=== PATIENT | female | born 1960 | race Caucasian/White ===

== ENCOUNTER 2017-03-24 23:20 | Emergency (ER) | payer MEDICAID ==
--- NOTE | 2017-03-24 23:57 | EDM.PDOC ---
ED HPI GENERAL MEDICAL PROBLEM - General Chief Complaint: General Stated Complaint: SORE THROAT Time Seen by Provider: 03/24/17 23:35 Source of Information: Reports: Patient History Limitations: Reports: No Limitations - History of Present Illness INITIAL COMMENTS - FREE TEXT/NARRATIVE: 56 YO WF presents to ER complaining of nonproductive cough, congestion and body aches x 2 days. Pt reports associated subjective fever/chills and 1 episode 2 days ago of shortness of breath. Pt is a 40 pack year smoker and states she has been diagnosed with reactive airway disease in the remote past. Pt denies any chest pain or shortness of breath at this time. Onset Date: 03/23/17 Duration: Day(s): (2) Location: Reports: Generalized Quality: Reports: Ache Severity: Mild Improves with: Reports: None Worsens with: Reports: None Associated Symptoms: Reports: Cough, Fever/Chills, Malaise. 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: Acetaminophen, NSAIDS Generalized Pain Score (Numeric/FACES): 5 - Related Data Allergies Allergy/AdvReac Type Severity Reaction Status Date / Time Penicillins Allergy Anaphylactic Verified 03/24/17 23:25 Shock Home Meds: Home Meds Dextromethorphan HBr/Chlor-Mal [Cough & Cold] 1 tab PO Q6HR PRN 03/24/17 [ History] diphenhydrAMINE HCl [Benadryl] 25 mg PO BID PRN 03/24/17 [History] Cetirizine [ZyrTEC] 10 mg PO DAILY #30 tablet 03/25/17 [Rx] Ibuprofen [Motrin] 600 mg PO Q6H #30 tablet 03/25/17 [Rx] ED ROS GENERAL - Review of Systems Review Of Systems: See Below Constitutional: Reports: Fever, Chills, Malaise HEENT: Reports: Rhinitis Respiratory: Reports: No Symptoms Cardiovascular: Reports: No Symptoms Endocrine: Reports: No Symptoms GI/Abdominal: Reports: No Symptoms : Reports: No Symptoms Musculoskeletal: Reports: No Symptoms Skin: Reports: No Symptoms Neurological: Reports: No Symptoms Psychiatric: Reports: No Symptoms Hematologic/Lymphatic: Reports: No Symptoms Immunologic: Reports: No Symptoms ED EXAM, GENERAL - Physical Exam Exam: See Below Exam Limited By: No Limitations General Appearance: Alert, WD/WN, No Apparent Distress Ears: Normal External Exam, Normal Canal, Hearing Grossly Normal, Normal TMs Ear Exam: Bilateral Ear: Auricle Normal, Canal Normal, TM normal Nose: Clear Rhinorrhea Throat/Mouth: Normal Inspection, Normal Lips, Normal Teeth, Normal Gums, Normal Oropharynx, Normal Voice, No Airway Compromise Head: Atraumatic, Normocephalic Neck: Normal Inspection, Supple, Non-Tender, Full Range of Motion Respiratory/Chest: No Respiratory Distress, Lungs Clear, Normal Breath Sounds, No Accessory Muscle Use, Chest Non-Tender Cardiovascular: Normal Peripheral Pulses, Regular Rate, Rhythm, No Edema, No Gallop, No JVD, No Murmur, No Rub GI/Abdominal: Normal Bowel Sounds, Soft, Non-Tender, No Organomegaly, No Distention, No Abnormal Bruit, No Mass Back Exam: Normal Inspection, Full Range of Motion, NT Extremities: Normal Inspection, Normal Range of Motion, Non-Tender, Normal Capillary Refill, No Pedal Edema Neurological: Alert, Oriented, CN II-XII Intact, Normal Cognition, Normal Gait, Normal Reflexes, No Motor/Sensory Deficits Psychiatric: Normal Affect, Normal Mood Skin Exam: Warm, Dry, Intact, Normal Color, No Rash Lymphatic: No Adenopathy Course - Vital Signs Last Recorded V/S: Last Vital Signs Temp 37.6 C 03/24/17 23:37 Pulse 79 03/24/17 23:37 Resp 20 03/24/17 23:37 BP 140/73 03/24/17 23:37 Pulse Ox 94 L 03/24/17 23:37 Departure - Departure Time of Disposition: 00:05 Disposition: Home, Self-Care 01 Condition: Good Clinical Impression: Viral upper respiratory infection - Discharge Information Prescriptions: Cetirizine [ZyrTEC] 10 mg PO DAILY #30 tablet Ibuprofen [Motrin] 600 mg PO Q6H #30 tablet Instructions: Viral Respiratory Infection, [id number] - Assessment/Plan Assessment:: 1. viral URI Plan: 1. discharge home 2. zyrtec 10mg PO QD 3. benadryl 50mg PO QHS PRN 4. Albuterol HFA Q4 PRN 5. motrin/tylenol 6. follow up at [facility] next 2 days for recheck
[2017-03-25] MEDS ORDERED: Albuterol HFA 18 Gm Inhaler INH PRN (00:11)
== END 2017-03-25 00:30 | disposition home or self-care (01) ==
LOC: KA.ED 23:20
DX: J06.9 Acute upper respiratory infection, unspecified (principal); Z88.0 Allergy status to penicillin
CPT/HCPCS: 99282; A9270

== ENCOUNTER 2020-12-13 23:52 | Emergency (ER) | payer MEDICARE, MEDICAID ==
--- NOTE | 2020-12-14 00:20 | EDM.PDOC ---
ED HPI GENERAL MEDICAL PROBLEM - General Chief Complaint: Abdominal Pain Stated Complaint: Abdominal Pain Time Seen by Provider: 12/14/20 00:19 Source of Information: Reports: Patient History Limitations: Reports: No Limitations - History of Present Illness INITIAL COMMENTS - FREE TEXT/NARRATIVE: Maureen, 60-year-old female, presents via private vehicle with what she states is abdominal/pelvic pain to the right side of midline. This pain developed 3 weeks ago and has been consistent daily. Yesterday, she turned and felt that it was slightly different but patiently waited until midnight to present to the emergency department for evaluation. She states that she has had looser stools questioning if she has irritable bowel but today suddenly developed what she feels is constipation she is not had another bowel movement in the past 6 hours. She denies any dysuria. Denies any vaginal discharge. Tonight when the pain continued she started self assessment and feels that she has a swelling presentation to her abdomen/groin. She denies fever chills or other factors. Has not had any surgeries with all female anatomy remaining intact and no previous issues as this. Did have a splenic procedure to which she states a small star device was placed. Has used Aleve which was beneficial but to a minimal extent.. Duration: Week(s): (three) Location: Reports: Abdomen, Pelvis Right Lower Abdomen Pain Score (Numeric/FACES): 5 - Related Data Allergies Allergy/AdvReac Type Severity Reaction Status Date / Time latex Allergy Itching Verified 12/14/20 02:00 Penicillins Allergy Anaphylactic Verified 12/14/20 00:09 Shock shellfish derived Allergy Anaphylactic Verified 12/14/20 00:09 Shock Home Meds: Home Meds diphenhydrAMINE HCL [Benadryl] 25 mg PO BID PRN 03/24/17 [History] Acetaminophen [Tylenol Arthritis] 650 mg PO Q6H PRN 12/14/20 [History] Cannabidiol (Cbd) Extract [CBD Oil] 1 ea PO DAILY PRN 12/14/20 [History] Dm/Acetaminophen/Doxylamine [Vicks Nyquil Cold-Flu Liquid] 30 ml PO Q6H PRN 0 12/14/20 [History] Ibuprofen [Motrin] 400 mg PO Q6H PRN 12/14/20 [History] Naproxen Sodium [Aleve] 220 mg PO DAILY 12/14/20 [History] Umeclidinium Brm/Vilanterol Tr [Anoro Ellipta 62.5-25 MCG] 1 puff IH DAILY 12/14/20 [History] Past Medical History HEENT History: Reports: Impaired Vision Cardiovascular History: Reports: High Cholesterol, Hypertension Respiratory History: Reports: Pneumonia, Recurrent Gastrointestinal History: Reports: Irritable Bowel Syndrome Genitourinary History: Reports: Pyelonephritis Musculoskeletal History: Reports: Fibromyalgia Psychiatric History: Reports: Anxiety, Depression, Panic Attack - Infectious Disease History Infectious Disease History: Reports: Mumps - Past Surgical History GI Surgical History: Reports: Other (See Below) Other GI Surgeries/Procedures: spleenectomy Social & Family History - Family History Family Medical History: No Pertinent Family History - Caffeine Use Caffeine Use: Reports: Tea ED ROS GENERAL - Review of Systems Review Of Systems: Comprehensive ROS is negative, except as noted in HPI. ED EXAM, GENERAL - Physical Exam Exam: See Below Free Text/Narrative:: Alert, oriented, in no significant distress. HEENT is negative discharge or deformity. PERRLA no icterus no injection. Jenks moist mucous membranes. Neck soft supple with no lymphadenopathy no rigidity noted. Thorax is raspy with full breath sounds no wheezes nor crackles. Cardiac is regular with no appreciated murmur. Abdomen has bowel sounds present with no specific tenderness nor megaly appreciated. There is mild tenderness in the extreme lower right quadrant with no rebound tenderness which she states is a fullness feeling when palpated into her pelvis region. She moves her legs about with no discomfort. States that certain motion, twisting, induces pain. Course - Vital Signs Last Recorded V/S: Last Vital Signs Temp 98.8 F 12/14/20 00:04 Pulse 63 12/14/20 01:15 Resp 18 12/14/20 00:04 BP 115/68 12/14/20 01:15 Pulse Ox 94 L 12/14/20 01:15 - Orders/Labs/Meds Orders: Active Orders 24 hr Category Date Time Status Abdomen Pelvis w Cont [CT] Stat Exams 12/14/20 01:36 Ordered Sodium Chloride 0.9% [Normal Saline] 50 ml Med 12/14/20 02:00 Active IV ASDIRECTED Medication Orders Sodium Chloride (Normal Saline) 50 mls @ 200 mls/hr IV ASDIRECTED MARILU Last Admin: 12/14/20 02:06 Dose: 200 mls/hr Documented by: MONICA Labs: Laboratory Tests 12/14/20 12/14/20 12/14/20 Range/Units 00:30 00:30 00:50 WBC 5.45 (5.00-10.00) 10^3/uL RBC 4.45 (3.80-5.50) 10^6/uL Hgb 13.4 (12.0-16.0) g/dL Hct 40.1 (37.0-47.0) % MCV 90.1 (82.0-92.0) fL MCH 30.1 (27.0-31.0) pg MCHC 33.4 (32.0-36.0) g/dL RDW 11.9 (11.5-14.5) % Plt Count 271 (150-400) 10^3/uL MPV 10.8 H (7.4-10.4) fL Immature Gran % (Auto) 0.0 (0.0-5.0) % Neut % (Auto) 30.8 L (50.0-70.0) % Lymph % (Auto) 59.6 H (20.0-40.0) % Sharp % (Auto) 7.7 (2.0-8.0) % Eos % (Auto) 1.5 (1.0-3.0) % Baso % (Auto) 0.4 (0.0-1.0) % Neut # (Auto) 1.68 L (2.50-7.00) 10^3/uL Lymph # (Auto) 3.25 (1.00-4.00) 10^3/uL Sharp # (Auto) 0.42 (0.10-0.80) 10^3/uL Eos # (Auto) 0.08 L (0.10-0.30) 10^3/uL Baso # (Auto) 0.02 (0.00-0.10) 10^3/uL Immature Gran # (Auto) 0.00 (0.00-0.50) 10^3/uL Sodium 143 (136-145) mmol/L Potassium 3.8 (3.5-5.1) mmol/L Chloride 106 (98-107) mmol/L Carbon Dioxide 27.4 (21.0-32.0) mmol/L Anion Gap 13.4 (5-15) mmol/L BUN 17 (7-18) mg/dL Creatinine 0.63 (0.51-1.17) mg/dL Est Cr Clr Drug Dosing 92.34 mL/min Estimated GFR (MDRD) > 60 mL/min Glucose 92 (70-140) mg/dL Calcium 8.4 L (8.7-10.3) mg/dL Total Bilirubin 0.1 L (0.2-1.0) mg/dL AST 13 L (15-37) U/L ALT 21 (14-63) U/L Alkaline Phosphatase 72 (46-116) U/L Total Protein 6.7 (6.4-8.2) g/dL Albumin 3.79 (3.40-5.00) g/dL Specimen Type Urincc Urine Color Yellow (YELLOW) Urine Appearance Clear (CLEAR) Urine pH 7.0 (5.0-9.0) Ur Specific Flynn 1.015 (1.005-1.030) Urine Protein Negative (NEGATIVE) mg/dL Urine Glucose (UA) Negative (NEGATIVE) mg/dL Urine Ketones Negative (NEGATIVE) mg/dL Urine Occult Blood Negative (NEGATIVE) Urine Nitrite Negative (NEGATIVE) Urine Bilirubin Negative (NEGATIVE) Urine Urobilinogen 0.2 (0.2-1.0) E.U./dL Ur Leukocyte Esterase Negative (NEGATIVE) Meds: Medications Generic Name Dose Route Start Last Admin Trade Name Freq PRN Reason Stop Dose Admin Sodium Chloride 50 mls @ 200 mls/hr 12/14/20 02:00 12/14/20 02:06 Normal Saline IV 200 mls/hr ASDIRECTED MARILU Administration Discontinued Medications Generic Name Dose Route Start Last Admin Trade Name Freq PRN Reason Stop Dose Admin Diphenhydramine HCl 25 mg 12/14/20 01:39 12/14/20 01:48 Diphenhydramine 50 Mg/Ml Sdv IVPUSH 12/14/20 01:40 25 mg ONETIME ONE Administration Iopamidol 75 ml 12/14/20 01:46 12/14/20 02:06 Iopamidol 755 Mg/Ml 75 Ml Bottle IVPUSH 12/14/20 01:47 75 ml ONETIME ONE Administration - Re-Assessments/Exams Free Text/Narrative Re-Assessment/Exam: 12/14/20 03:29 resting comfortable awaiting delayed CT report. Departure - Departure Time of Disposition: 03:46 Disposition: Home, Self-Care 01 Condition: Good Clinical Impression: Abdominal fullness, Abdominal pain - Discharge Information *PRESCRIPTION DRUG MONITORING PROGRAM REVIEWED*: Not Applicable *COPY OF PRESCRIPTION DRUG MONITORING REPORT IN PATIENT SHELBY: Not Applicable Referrals: Kajal Patel, [employer] [Primary Care Provider] - Forms: ED Department Discharge Additional Instructions: There were no significant findings on your CT of the abdomen and pelvis other than that questionable foreign body by the pancreas which may be related to your procedure performed on the spleen. This needs to be followed up with your provider in the clinic. There is no evidence of any herniation. It is likely it is a muscle strain. Significant amount of stool was noted on the scan, you need to increase your fiber and fluid. You need to go to the clinic and be reassessed with recommendations for physical therapy. Continue all medications you are on as directed. Stool softener and increasing your fluid intake may be beneficial for the amount of stool retained. Follow-up with your clinic as you are scheduled. Sepsis Event Note (ED) - Evaluation Sepsis Screening Result: No Definite Risk - Focused Exam Vital Signs: Vital Signs Temp Pulse Resp BP Pulse Ox 12/14/20 01:15 63 115/68 94 L 12/14/20 01:00 62 120/66 94 L 12/14/20 00:45 62 124/58 L 94 L 12/14/20 00:30 60 142/60 H 94 L 12/14/20 00:15 64 144/66 H 94 L 12/14/20 00:04 98.8 F 68 18 121/67 94 L 12/13/20 23:52 98.8 F 68 18 121/67 94 L - Problem List & Annotations (1) Abdominal pain SNOMED Code(s): 08600265 Code(s): R10.9 - UNSPECIFIED ABDOMINAL PAIN Status: Acute (2) Abdominal fullness SNOMED Code(s): 142010247 Code(s): R19.8 - OTH SYMPTOMS AND SIGNS INVOLVING THE DGSTV SYS AND ABDOMEN Status: Acute - Problem List Review Problem List Initiated/Reviewed/Updated: Yes - My Orders Last 24 Hours: My Active Orders 12/14/20 01:36 Abdomen Pelvis w Cont [CT] Stat 12/14/20 02:00 Sodium Chloride 0.9% [Normal Saline] 50 ml IV ASDIRECTED - Assessment/Plan Last 24 Hours: My Active Orders 12/14/20 01:36 Abdomen Pelvis w Cont [CT] Stat 12/14/20 02:00 Sodium Chloride 0.9% [Normal Saline] 50 ml IV ASDIRECTED Plan: There were no significant findings on your CT of the abdomen and pelvis other than that questionable foreign body by the pancreas which may be related to your procedure performed on the spleen. This needs to be followed up with your provider in the clinic. There is no evidence of any herniation. It is likely it is a muscle strain. Significant amount of stool was noted on the scan, you need to increase your fiber and fluid. You need to go to the clinic and be reassessed with recommendations for physical therapy. Continue all medications you are on as directed. Stool softener and increasing your fluid intake may be beneficial for the amount of stool retained. Follow-up with your clinic as you are scheduled.
[2020-12-14 01:26] VITALS: BP 115/68; PULSE 63
[2020-12-14 01:26] LABS: ANION GAP 13.4 mmol/L (5-15); CHLORIDE,CL 106 mmol/L (98-107); SODIUM,NA 143 mmol/L (136-145)
[2020-12-14] MEDS: diphenhydrAMINE 50 MG/ML SDV IVPUSH ONE (01:48)
[2020-12-14] MEDS: Sodium Chloride 0.9% 50 ML IV SCH (02:06)
[2020-12-14] MEDS: Iopamidol 755 Mg/ML 75 ML Bottle IVPUSH ONE (02:06)
--- NOTE | 2020-12-14 07:38 | CT ---
[id number] CT/CT Abdomen Pelvis W IV EXAM: CT Abdomen Pelvis W IV CLINICAL DATA: RIGHT LOWER QUADRANT ABDOMINAL PAIN COMPARISON: No previous similar exam is available. FINDINGS: The appendix is normal The appendix is identified on images 80 through 94, series 2. The pelvis shows no mass or adenopathy The liver and spleen, adrenals, kidneys, pancreas, and aorta are unremarkable There is a single gallstone identified on image 41, series 2 IMPRESSION: NO ACUTE PROCESS. Edwar Bond MD 12/14/20 0737 Thank you for allowing us to participate in the care of your patient.
== END 2020-12-14 04:00 | disposition home or self-care (01) ==
LOC: KA.ED 23:52
DX: R10.31 Right lower quadrant pain (principal); I10 Essential (primary) hypertension; Z91.040 Latex allergy status; Z88.0 Allergy status to penicillin; Z91.013 Allergy to seafood; Z79.899 Other long term (current) drug therapy
CPT/HCPCS: 74177; 80053; 81003; 85025; 96374; 99284; 99284-25; J1200; Q9967

== ENCOUNTER 2022-02-24 15:25 | Emergency (ER) | payer MEDICARE, MEDICAID ==
[2022-02-24] MEDS ORDERED: Sodium Chloride 0.9% 10 ML Syringe FLUSH PRN (15:34)
[2022-02-24] MEDS ORDERED: LORazepam 0.5 MG Tab PO ONE ×2 (15:41→20:33)
[2022-02-24] MEDS ORDERED: Sodium Chloride 0.9% 1,000 ML IV SCH (15:45)
[2022-02-24 16:13] LABS: ANION GAP 15.8 mmol/L (5-15); CHLORIDE,CL 102 mmol/L (98-107); SODIUM,NA 139 mmol/L (136-145)
[2022-02-24 16:18] LABS: ESTIMATED GFR 98 mL/min (>=60)
[2022-02-24] MEDS ORDERED: Heparin Sodium 5,000 Units/ML Vial IVPUSH ONE (20:10)
[2022-02-24] MEDS ORDERED: Heparin Sodium/D5W 250 ML IV SCH (20:15)
[2022-02-24] MEDS ORDERED: Ondansetron 4 MG Tab.DIS PO ONE (20:34)
[2022-02-24] MEDS ORDERED: Ondansetron 4 MG Tab.DIS ONE (20:35)
== END 2022-02-24 21:00 ==
LOC: KA.ED 15:25
DX: R07.89 Other chest pain (principal); F41.9 Anxiety disorder, unspecified; R79.89 Other specified abnormal findings of blood chemistry; I10 Essential (primary) hypertension; J44.9 Chronic obstructive pulmonary disease, unspecified; M79.7 Fibromyalgia; Z91.040 Latex allergy status; Z88.0 Allergy status to penicillin; Z91.013 Allergy to seafood; Z79.899 Other long term (current) drug therapy
CPT/HCPCS: 36415; 71045; 80053; 84484; 85025; 85379; 85730; 93005; 93010; 96361; 96374; 96376; 99284; 99285-25; A9270-GY; J1644; J7030